=== PATIENT | female | born 1955 | race Two or more races ===

== ENCOUNTER 2023-10-30 22:19 | Inpatient (IN) | payer OTHER ==
[2023-10-30] MEDS ORDERED: MAG HYDROX/AL HYDROX/SIMETH 30 ML UNIT-DOSE CUP ONE (23:21)
[2023-10-30] MEDS ORDERED: ONDANSETRON 4 MG/2 ML VIAL ONE (23:21)
[2023-10-30] MEDS ORDERED: ACETAMINOPHEN INJECTION 100 ML IVPB ONE (23:21)
[2023-10-30] MEDS ORDERED: FAMOTIDINE 20 MG/50 ML IVPB 20 MG/50 ML MG IVPB ONE (23:21)
[2023-10-30] MEDS: FAMOTIDINE 20 MG/50 ML IVPB 20 MG/50 ML MG IVPB ONE (23:50)
[2023-10-30] MEDS: MAG HYDROX/AL HYDROX/SIMETH 30 ML UNIT-DOSE CUP PO ONE (23:50)
[2023-10-30] MEDS: ONDANSETRON 4 MG/2 ML VIAL IVPUSH ONE (23:50)
[2023-10-30] MEDS: ACETAMINOPHEN 1000 MG/100 ML BAG IVPB ONE (23:50)
[2023-10-31 00:31] LABS: BASO % 0.2 % (0-2.0); EOS % 0.2 % (0-4.5); HEMATOCRIT 41.3 % (32.4-45.2); HEMOGLOBIN 13.7 GM/dL (10.7-15.3); LYMPH % 5.7 % (8-40); MCH 28.8 pg (25.7-33.7); MCHC 33.2 g/dl (32.0-36.0); MEAN CELL VOLUME 86.7 fl (80-96); MEAN PLT VOLUME 8.5 fl (7.5-11.1); MONO % 6.2 % (3.8-10.2); NEUT % 87.7 % (42.8-82.8); PLATELET COUNT 401 10^3/uL (134-434); RBC 4.76 M/mm3 (3.60-5.2); RDW 12.4 % (11.6-15.6); WHITE BLOOD COUNT 14.6 K/mm3 (4.0-10.0)
[2023-10-31 00:36] LABS: INR 1.14 (0.83-1.09); PROTHROMBIN TIME (PATIENT) 13.2 SEC (9.7-13.0)
[2023-10-31 00:39] LABS: ACTIVATED PTT 27.5 SECONDS (25.2-36.5)
[2023-10-31 00:48] LABS: ALBUMIN 3.3 g/dl (3.4-5.0); BLOOD UREA NITROGEN 14.3 mg/dL (7-18)
[2023-10-31 00:51] LABS: CREATININE 0.9 mg/dL (0.55-1.3)
[2023-10-31 00:53] LABS: BILIRUBIN,TOTAL 1.3 mg/dL (0.2-1); TOT PROT 7.3 g/dl (6.4-8.2)
[2023-10-31] MEDS ORDERED: PIPERACILLIN/TAZOB 3.375 GM 3.375 GM/50 ML BAG IVPB ONE (05:38)
[2023-10-31] MEDS: PIPERACILLIN/TAZOB 3.375 GM 3.375 GM in DEXTROSE 5%-WATER - 50 ML IVPB ONE (05:45)
[2023-10-31 07:57] LABS: PH,URINE >= 9.0 (5.0-8.0); URINE APPEARANCE CLOUDY; URINE BILIRUBIN NEGATIVE (NEGATIVE); URINE COLOR YELLOW; URINE GLUCOSE (UA) NEGATIVE (NEGATIVE); URINE KETONE NEGATIVE (NEGATIVE); URINE LEUK ESTERASE NEGATIVE (NEGATIVE); URINE NITRITE NEGATIVE (NEGATIVE); URINE PROTEIN TRACE (NEGATIVE)
[2023-10-31] MEDS: D5-1/2NS+20 MEQ KCL - 20 MEQ/1,000 ML INFUS.BAG IV SCH (11:22)
[2023-10-31] MEDS: HEPARIN NA (PORCINE) 5,000 UNITS/ML 1ML VIAL SQ SCH (11:25)
[2023-10-31] MEDS ORDERED: PIPERACILLIN/TAZOB 3.375 GM 3.375 GM in DEXTROSE 5%-WATER - 50 ML IVPB SCH (13:00)
[2023-10-31] MEDS: PIPERACILLIN/TAZOB 3.375 GM 3.375 GM in DEXTROSE 5%-WATER - 50 ML IVPB SCH (14:02)
[2023-10-31 15:23] VITALS: BMI 31.6
[2023-11-01 09:48] LABS: BASO % 0.5 % (0-2.0); EOS % 2.1 % (0-4.5); HEMATOCRIT 38.1 % (32.4-45.2); HEMOGLOBIN 12.8 GM/dL (10.7-15.3); LYMPH % 18.4 % (8-40); MCH 29.5 pg (25.7-33.7); MCHC 33.5 g/dl (32.0-36.0); MEAN CELL VOLUME 88.1 fl (80-96); MEAN PLT VOLUME 8.1 fl (7.5-11.1); MONO % 8.2 % (3.8-10.2); NEUT % 70.8 % (42.8-82.8); PLATELET COUNT 332 10^3/uL (134-434); RBC 4.33 M/mm3 (3.60-5.2); RDW 12.5 % (11.6-15.6); WHITE BLOOD COUNT 7.3 K/mm3 (4.0-10.0)
[2023-11-01] MEDS: PANTOPRAZOLE SODIUM 40 MG VIAL IVPUSH SCH (10:19)
[2023-11-01 10:24] LABS: POTASSIUM 4.6 mmol/L (3.5-5.1)
[2023-11-01 10:26] LABS: BLOOD UREA NITROGEN 11.5 mg/dL (7-18); CALCIUM 8.6 mg/dL (8.5-10.1)
[2023-11-01 10:29] LABS: CREATININE 0.7 mg/dL (0.55-1.3)
[2023-11-01 10:31] LABS: BILIRUBIN,TOTAL 1.1 mg/dL (0.2-1); TOT PROT 6.8 g/dl (6.4-8.2)
[2023-11-02 08:51] LABS: HEMATOCRIT 40.3 % (32.4-45.2); HEMOGLOBIN 13.2 GM/dL (10.7-15.3); MCHC 32.7 g/dl (32.0-36.0); MEAN CELL VOLUME 88.5 fl (80-96); MEAN PLT VOLUME 8.4 fl (7.5-11.1); PLATELET COUNT 335 10^3/uL (134-434); RBC 4.56 M/mm3 (3.60-5.2); RDW 12.3 % (11.6-15.6); WHITE BLOOD COUNT 5.2 K/mm3 (4.0-10.0)
[2023-11-02 09:03] LABS: POTASSIUM 4.1 mmol/L (3.5-5.1)
[2023-11-02 09:07] LABS: BLOOD UREA NITROGEN 8.8 mg/dL (7-18); CALCIUM 8.7 mg/dL (8.5-10.1)
[2023-11-02 09:10] LABS: CREATININE 0.7 mg/dL (0.55-1.3)
[2023-11-02 09:12] LABS: BILIRUBIN,TOTAL 0.7 mg/dL (0.2-1); TOT PROT 6.6 g/dl (6.4-8.2)
[2023-11-02] MEDS: IOHEXOL 300 MG/ML INFUS..BTL IJ ONE (17:50)
[2023-11-02] MEDS: IOHEXOL 300 MG/ML INFUS..BTL IV ONE (17:50)
[2023-11-02] MEDS: INDOMETHACIN 50 MG RECTAL SUPPOSITORY PR ONE (18:22)
[2023-11-02] MEDS ORDERED: ONDANSETRON 4 MG/2 ML VIAL IVPUSH PRN (19:05)
[2023-11-02] MEDS ORDERED: LACTATED RINGERS SOLUTION 1,000 ML IV SCH (19:15)
[2023-11-02] MEDS: LACTATED RINGERS SOLUTION 1,000 ML IV ONE (19:50)
[2023-11-02] MEDS ORDERED: INDOMETHACIN 50 MG RECTAL SUPPOSITORY PR ONE (20:30)
[2023-11-02 20:32] VITALS: RESP 20
[2023-11-02] MEDS: PIPERACILLIN/TAZOB 3.375 GM 3.375 GM in DEXTROSE 5%-WATER - 50 ML IVPB SCH (20:38)
[2023-11-02] MEDS: OSELTAMIVIR PHOSPHATE 75 MG CAPSULE PO SCH (21:30)
[2023-11-03] MEDS: ONDANSETRON 4 MG/2 ML VIAL IVPUSH PRN (01:38)
[2023-11-03] MEDS: ACETAMINOPHEN 325 MG TABLET (FP) PO PRN (03:48)
[2023-11-03 07:59] LABS: HEMATOCRIT 41.7 % (32.4-45.2); MCH 29.8 pg (25.7-33.7); MCHC 33.6 g/dl (32.0-36.0); MEAN CELL VOLUME 88.6 fl (80-96); MEAN PLT VOLUME 8.8 fl (7.5-11.1); PLATELET COUNT 369 10^3/uL (134-434); RBC 4.71 M/mm3 (3.60-5.2); RDW 12.3 % (11.6-15.6); WHITE BLOOD COUNT 8.7 K/mm3 (4.0-10.0)
[2023-11-03 08:09] LABS: POTASSIUM 4.1 mmol/L (3.5-5.1)
[2023-11-03 08:14] LABS: CALCIUM 9.3 mg/dL (8.5-10.1)
[2023-11-03 08:15] LABS: ALBUMIN 3.2 g/dl (3.4-5.0); BLOOD UREA NITROGEN 8.8 mg/dL (7-18)
[2023-11-03 08:18] LABS: CREATININE 0.7 mg/dL (0.55-1.3)
[2023-11-03 08:20] LABS: TOT PROT 7.4 g/dl (6.4-8.2)
[2023-11-03 08:22] LABS: BILIRUBIN,TOTAL 1.6 mg/dL (0.2-1)
[2023-11-03] MEDS: POLYETHYLENE GLYCOL (HEALTHYLAX) 3350 17 GM PACKET PO SCH ×2 (13:30→14:13)
[2023-11-03] MEDS: INSULIN ASPART SLIDING SCALE (NOVOLOG) 1 VIAL SQ SCH (16:31)
[2023-11-03] MEDS: ATORVASTATIN CA 40 MG TABLET (FP) PO SCH (21:13)
[2023-11-03] MEDS ORDERED: FAMOTIDINE 20 MG TABLET PO SCH (22:00)
[2023-11-04 08:47] VITALS: BP 132/83; PULSE 75; TEMP 97.3
[2023-11-04] MEDS: amLODIPine BESYLATE 5 MG TABLET (FP) PO SCH (09:42)
[2023-11-04] MEDS: RAMIPRIL 5 MG CAPSULE PO SCH (09:42)
[2023-11-04] MEDS ORDERED: FAMOTIDINE 20 MG TABLET PO SCH (10:00)
[2023-11-04 10:11] LABS: BASO % 1.1 % (0-2.0); EOS % 4.7 % (0-4.5); HEMOGLOBIN 14.3 GM/dL (10.7-15.3); MCH 29.7 pg (25.7-33.7); MEAN CELL VOLUME 87.5 fl (80-96); MEAN PLT VOLUME 8.8 fl (7.5-11.1); MONO % 12.5 % (3.8-10.2); NEUT % 48.7 % (42.8-82.8); PLATELET COUNT 336 10^3/uL (134-434); RBC 4.81 M/mm3 (3.60-5.2); RDW 12.5 % (11.6-15.6); WHITE BLOOD COUNT 5.1 K/mm3 (4.0-10.0)
[2023-11-04 10:21] LABS: POTASSIUM 4.6 mmol/L (3.5-5.1)
[2023-11-04 10:28] LABS: CREATININE 0.7 mg/dL (0.55-1.3); MAGNESIUM 2.3 mg/dL (1.8-2.4)
[2023-11-04 10:29] LABS: ALBUMIN 3.2 g/dl (3.4-5.0); BLOOD UREA NITROGEN 8.7 mg/dL (7-18); CALCIUM 9.1 mg/dL (8.5-10.1)
[2023-11-04 10:30] LABS: TOT PROT 7.1 g/dl (6.4-8.2)
[2023-11-04 10:32] LABS: BILIRUBIN,DIRECT 0.3 mg/dL (0.0-0.2); PHOSPHOROUS 3.3 mg/dL (2.5-4.9)
[2023-11-04 10:34] LABS: BILIRUBIN,TOTAL 0.5 mg/dL (0.2-1)
== END 2023-11-04 16:26 | disposition home or self-care (01) | DRG 444 ==
LOC: JER 22:19 → JERBED 10-31 08:43 → J5S 10-31 10:02 → J6S 11-02 00:23
PROVIDERS: ADMIT Internal Medicine; ATTEND Internal Medicine
PROC: 0F798ZZ Dilation of Common Bile Duct, Via Natural or Artificial Opening Endoscopic (ICD-10-PCS; 2023-11-02)
PROC: 0FC98ZZ Extirpation of Matter from Common Bile Duct, Via Natural or Artificial Opening Endoscopic (ICD-10-PCS; principal; 2023-11-02 15:45)
DX: K80.31 Calculus of bile duct with cholangitis, unspecified, with obstruction (principal); U07.1 COVID-19; K83.8 Other specified diseases of biliary tract; R79.89 Other specified abnormal findings of blood chemistry; E11.9 Type 2 diabetes mellitus without complications; E66.9 Obesity, unspecified; Z68.31 Body mass index [BMI] 31.0-31.9, adult; K21.9 Gastro-esophageal reflux disease without esophagitis; D72.829 Elevated white blood cell count, unspecified
CPT/HCPCS: 0241U-QW; 36415; 71045-TC-FY; 74177-TC; 74330-TC; 80053; 80076; 81003; 82962; 83036; 83690; 83735; 84100; 84484; 85025; 85027; 85610; 85730; 87086; 93005; 93010; 99285-25; J0131; J1644; Q9967